=== PATIENT | male | born 1960 | race Caucasian/White ===

== ENCOUNTER 2018-09-09 05:19 | Emergency (ER) | payer OTHER ==
[2018-09-09] MEDS ORDERED: hydrALAZINE 20 MG/ML SDV IV ONE (05:20)
[2018-09-09] MEDS ORDERED: fentaNYL 100 MCG/2 ML SDV IV ONE (05:20)
[2018-09-09] MEDS ORDERED: HYDROmorphone 1 MG/ML Syringe IV ONE (05:20)
[2018-09-09] MEDS ORDERED: Sodium Chloride 0.9% 1,000 ML IV ONE (05:20)
[2018-09-09] MEDS ORDERED: Ondansetron 4 MG/2 ML SDV IV ONE (05:20)
[2018-09-09 06:59] LABS: ANION GAP 14.6; CHLORIDE,CL 103 mmol/L (101-111); SODIUM,NA 136 mmol/L (135-145)
[2018-09-09] MEDS ORDERED: HYDROmorphone 1 MG/ML Syringe ONE (07:11)
--- NOTE | 2018-09-09 08:16 | CR ---
Clinical history: 58-year-old male "severe" pain base of skull, neck and back. Interpretation: AP lateral cervical spine film confirms some marginal spondylosis and uncinate spur formation at the lowest C6-7 interspace. Normal age and gender appropriate bone mineral density. Normal height and alignment of the 7 cervical vertebra. No sign of pathologic skeletal lesion, cervical fracture or spondylolisthesis. No cervical rib anomalies. Lung apices clear. 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 No fracture or dislocation cervical spine.
--- NOTE | 2018-09-09 08:18 | CR ---
Clinical history: 58-year-old male emergency department with severe" back pain. Interpretation: Abnormal. Signs of chronic multilevel thoracic disc disease i.e. marked interspace narrowing with hypertrophic marginal spondylosis involving all vertebra mid and lower thoracic spine. No sign of paraspinal soft tissue mass. Posterior ribs unremarkable. Lung arreola clear. No pathologic skeletal lesion, thoracic fracture or dislocation.
--- NOTE | 2018-09-09 08:21 | CR ---
Clinical history: 58-year-old male pain. Interpretation: (2 views left shoulder) Prominent Hill-Sachs notch like deformity lateral aspect of the humeral head suggesting previous dislocation and... probable capsular damage. *Humeral head is elevated relative to the glenoid of the scapula indicating probable rotator cuff impingement or tear. Clinical? Homogeneous normal bone density. Underlying ribs left hemithorax unremarkable. No sign of pathologic skeletal lesion, acute left shoulder fracture or glenohumeral dislocation. No acromioclavicular separation.
--- NOTE | 2018-09-09 08:23 | CR ---
Clinical history: 58-year-old male severe back pain. Interpretation: Dense atheromatous calcifications outlining normal caliber abdominal aorta. Homogeneous normal bone mineral density consistent with age and gender. Multilevel lower thoracic and upper lumbar disc disease i.e. interspace narrowing T11 through L2 with endplate sclerosis and marginal spondylosis. No sign of pathologic skeletal lesion, lumbar fracture or dislocation. No abnormal intervertebral disc space narrowing lower lumbar spine. Symmetric spacing normal-appearing SI and hip joints but dense reactive bony eburnation suggesting early arthritis hips. No pelvic or either hip fracture/dislocation.
[2018-09-09] MEDS ORDERED: cefTRIAXone 1 GM Vial IM ONE (10:13)
--- NOTE | 2018-09-09 10:18 | EDM.PDOC ---
ED HPI GENERAL MEDICAL PROBLEM - General Chief Complaint: Neck Problem Stated Complaint: VOMITTING,HEADACHE - Related Data Allergies Allergy/AdvReac Type Severity Reaction Status Date / Time No Known Allergies Allergy Verified 09/09/18 12:43 Home Meds: Home Meds Aspirin 1 tab PO DAILY 05/22/16 [History] Glimepiride 1 tab PO DAILY 05/22/16 [History] Insulin Detemir [Levemir] 28 units SQ BEDTIME 05/22/16 [History] Liraglutide [Victoza] 1.2 mg SQ DAILY 05/22/16 [History] Lisinopril [Zestril] 1 tab PO DAILY 05/22/16 [History] Magnesium Oxide [Magnesium] 1 tab PO DAILY 05/22/16 [History] Multivitamin [Multivitamins] 1 tab PO DAILY 05/22/16 [History] atorvaSTATin [Lipitor] 1 tab PO DAILY 05/22/16 [History] metFORMIN HCl [Metformin HCl] 1 tab PO BID 05/22/16 [History] Past Medical History HEENT History: Reports: None Cardiovascular History: Reports: High Cholesterol Respiratory History: Reports: Sleep Apnea Gastrointestinal History: Reports: None Genitourinary History: Reports: None Musculoskeletal History: Reports: None Neurological History: Reports: None Psychiatric History: Reports: None Endocrine/Metabolic History: Reports: Diabetes, Type II Hematologic History: Reports: None Immunologic History: Reports: None Oncologic (Cancer) History: Reports: None Dermatologic History: Reports: Eczema - Infectious Disease History Infectious Disease History: Reports: Chicken Pox, Mumps - Past Surgical History HEENT Surgical History: Reports: Oral Surgery, Tonsillectomy Social & Family History - Family History HEENT: Reports: None Cardiac: Reports: High Cholesterol, [place] Respiratory: Reports: None GI: Reports: None : Reports: None OBGYN: Reports: None Musculoskeletal: Reports: None Neurological: Reports: None Psychiatric: Reports: None Endocrine/Metabolic: Reports: None Hematologic: Reports: None Immunologic: Reports: None Dermatologic: Reports: Eczema Oncologic: Reports: Pancreatic, Skin - Caffeine Use Caffeine Use: Reports: Coffee Caffeine Use Comment: rare coffee Course - Orders/Labs/Meds Labs: Laboratory Tests 09/09/18 09/09/18 09/09/18 Range/Units 05:32 05:32 05:32 WBC 14.4 H (5.0-10.0) 10^3/uL RBC 4.95 (4.6-6.2) 10^6/uL Hgb 14.4 (14.0-18.0) g/dL Hct 43.4 (40.0-54.0) % MCV 87.7 (80-100) fL MCH 29.1 (27.0-34.0) pg MCHC 33.2 (33.0-35.0) g/dL Plt Count 318 (150-450) 10^3/uL Neut % (Auto) 68.0 (42.2-75.2) % Lymph % (Auto) 22.3 (20.5-50.1) % [place] % (Auto) 7.4 (2-8) % Eos % (Auto) 2.2 (1.0-3.0) % Baso % (Auto) 0.1 (0.0-1.0) % Sodium 136 (135-145) mmol/L Potassium 3.6 (3.6-5.0) mmol/L Chloride 103 (101-111) mmol/L Carbon Dioxide 22.0 (21.0-31.0) mmol/L Anion Gap 14.6 BUN 27 H (7-18) mg/dL Creatinine 0.7 (0.6-1.3) mg/dL Est Cr Clr Drug Dosing TNP Estimated GFR (MDRD) > 60 BUN/Creatinine Ratio 38.57 Glucose 165 H (74-105) mg/dL Lactic Acid 1.1 (0.5-2.2) mmol/L Calcium 9.3 (8.4-10.2) mg/dl Total Bilirubin 0.5 (0.2-1.0) mg/dL AST 20 (10-42) IU/L ALT 26 (10-60) IU/L Alkaline Phosphatase 65 (42-121) IU/L Troponin I < 0.02 (0.00-0.02) ng/ml Total Protein 7.4 (6.7-8.2) g/dl Albumin 4.1 (3.2-5.5) g/dl Globulin 3.3 Albumin/Globulin Ratio 1.24 Amylase 35 (28-100) U/L Lipase 33 (22-51) U/L Urine Color (YELLOW) Urine Appearance (CLEAR) Urine pH (5.0-9.0) Ur Specific [place] (1.005-1.030) Urine Protein (NEGATIVE) Urine Glucose (UA) (NEGATIVE) Urine Ketones (NEGATIVE) Urine Occult Blood (NEGATIVE) Urine Nitrite (NEGATIVE) Urine Bilirubin (NEGATIVE) Urine Urobilinogen (0.2-1.0) mg/dL Ur Leukocyte Esterase (NEGATIVE) Urine RBC /HPF Urine WBC (0-5/HPF) /HPF Ur Epithelial Cells (NOT SEEN) /HPF 09/09/18 Range/Units 08:10 WBC (5.0-10.0) 10^3/uL RBC (4.6-6.2) 10^6/uL Hgb (14.0-18.0) g/dL Hct (40.0-54.0) % MCV (80-100) fL MCH (27.0-34.0) pg MCHC (33.0-35.0) g/dL Plt Count (150-450) 10^3/uL Neut % (Auto) (42.2-75.2) % Lymph % (Auto) (20.5-50.1) % [place] % (Auto) (2-8) % Eos % (Auto) (1.0-3.0) % Baso % (Auto) (0.0-1.0) % Sodium (135-145) mmol/L Potassium (3.6-5.0) mmol/L Chloride (101-111) mmol/L Carbon Dioxide (21.0-31.0) mmol/L Anion Gap BUN (7-18) mg/dL Creatinine (0.6-1.3) mg/dL Est Cr Clr Drug Dosing Estimated GFR (MDRD) BUN/Creatinine Ratio Glucose (74-105) mg/dL Lactic Acid (0.5-2.2) mmol/L Calcium (8.4-10.2) mg/dl Total Bilirubin (0.2-1.0) mg/dL AST (10-42) IU/L ALT (10-60) IU/L Alkaline Phosphatase (42-121) IU/L Troponin I (0.00-0.02) ng/ml Total Protein (6.7-8.2) g/dl Albumin (3.2-5.5) g/dl Globulin Albumin/Globulin Ratio Amylase (28-100) U/L Lipase (22-51) U/L Urine Color Yellow (YELLOW) Urine Appearance Clear (CLEAR) Urine pH 7.0 (5.0-9.0) Ur Specific [place] 1.020 (1.005-1.030) Urine Protein Trace H (NEGATIVE) Urine Glucose (UA) 100 H (NEGATIVE) Urine Ketones Negative (NEGATIVE) Urine Occult Blood Negative (NEGATIVE) Urine Nitrite Negative (NEGATIVE) Urine Bilirubin Negative (NEGATIVE) Urine Urobilinogen 0.2 (0.2-1.0) mg/dL Ur Leukocyte Esterase Negative (NEGATIVE) Urine RBC 0-5 /HPF Urine WBC Not seen (0-5/HPF) /HPF Ur Epithelial Cells Rare (NOT SEEN) /HPF Meds: Medications Discontinued Medications Generic Name Dose Route Start Last Admin Trade Name Freq PRN Reason Stop Dose Admin Ceftriaxone Sodium 1 gm 09/09/18 10:13 Rocephin IM 09/09/18 10:14 ONETIME ONE Fentanyl 25 mcg 09/09/18 05:20 Sublimaze IV 09/09/18 05:21 .STK-MED ONE Hydralazine HCl 10 mg 09/09/18 05:20 Apresoline IV 09/09/18 05:21 .STK-MED ONE Hydromorphone HCl Confirm 09/09/18 07:11 09/09/18 09:04 Dilaudid Administered 09/09/18 07:12 1 mg Dose Administration 1 mg .ROUTE .STK-MED ONE Hydromorphone HCl 1 mg 09/09/18 05:20 Dilaudid IV 09/09/18 05:21 .STK-MED ONE Sodium Chloride 1,000 mls @ as directed 09/09/18 05:20 Normal Saline IV 09/09/18 05:21 .STK-MED ONE Ondansetron HCl 4 mg 09/09/18 05:20 Zofran IV 09/09/18 05:21 .STK-MED ONE Orphenadrine Citrate 60 mg 09/09/18 08:30 09/09/18 09:11 Norflex IM 60 mg Q12H FIONA Administration Departure - Departure Disposition: Home, Self-Care 01 Condition: Poor Clinical Impression: Neck pain Right otitis media Qualifiers: Otitis media type: suppurative Chronicity: acute Recurrence: not specified as recurrent Spontaneous tympanic membrane rupture: without spontaneous rupture Qualified Code(s): H66.001 - Acute suppurative otitis media without spontaneous rupture of ear drum, right ear Rotator cuff disorder Qualifiers: Laterality: left Qualified Code(s): M67.912 - Unspecified disorder of synovium and tendon, left shoulder - Discharge Information *PRESCRIPTION DRUG MONITORING PROGRAM REVIEWED*: No *COPY OF PRESCRIPTION DRUG MONITORING REPORT IN PATIENT DANY: No Instructions: Shoulder Pain, Otitis Media, Adult, [id number], Neck Exercises , Radicular Pain, Cervical Sprain, [id number] Referrals: Rocio Loving NP [Primary Care Provider] - Forms: ED Department Discharge Additional Instructions: RX: Diclofenac, Flexeril Drink plenty of water Follow up with your primary care facility Return to the ER with any further problems
== END 2018-09-09 10:32 | disposition home or self-care (01) ==
LOC: DL.ED 05:19
DX: H66.001 Acute suppurative otitis media without spontaneous rupture of ear drum, right ear (principal); M67.912 Unspecified disorder of synovium and tendon, left shoulder; M54.2 Cervicalgia; R51 Headache; I10 Essential (primary) hypertension; F17.210 Nicotine dependence, cigarettes, uncomplicated; F41.9 Anxiety disorder, unspecified; E11.9 Type 2 diabetes mellitus without complications; E78.00 Pure hypercholesterolemia, unspecified; Z79.82 Long term (current) use of aspirin; Z79.899 Other long term (current) drug therapy
CPT/HCPCS: 36415; 70450; 72040; 72070; 72100; 73030; 80053; 81001; 82150; 83605; 83690; 84484; 85025; 87804; 96372; 96374; 96375; 99284; J0360; J1170; J2360; J2405; J3010; J7030

== ENCOUNTER 2018-09-09 12:09 | Emergency (ER) | payer OTHER ==
[2018-09-09 12:14] VITALS: BP 121/89
[2018-09-09] MEDS ORDERED: cefTRIAXone 2 GM in Sodium Chloride 0.9% 100 ML IV ONE (12:40)
[2018-09-09] MEDS ORDERED: cefTRIAXone 1 GM Vial ONE (13:11)
--- NOTE | 2018-09-09 13:23 | CR ---
Clinical history: 58-year-old male emergency department with severe neck/back pain who is "decompensating" (ET tube). Interpretation: AP supine portable chest film confirms presence of midline and endotracheal tube (tip directed to the right of midline and lies approximately 3 cm from the louisa or tracheobronchial bifurcation). No rib fractures. No pneumothorax or pneumomediastinum. Symmetric aeration of the lung arreola without sign of atelectasis or collapse. Normal cardiac silhouette without alveolar edema or dependent effusion. Multilevel disc disease and hypertrophic arthritic changes of the spine. No lobar pneumonia. Note: NG tube tip left upper quadrant presumably fundus of stomach. External security monitor leads. CONCLUSION: Satisfactory tube placement.
--- NOTE | 2018-09-16 02:58 | EDM.PDOC ---
Scribed by Shreya Sims 09/16/18 0254 for Maddie Johnston NP ED HPI GENERAL MEDICAL PROBLEM - General Chief Complaint: Drug or Alcohol Abuse Stated Complaint: UNKNOWN-AMBULANCE Time Seen by Provider: 09/09/18 12:11 Source of Information: Reports: Patient, EMS, EMS Notes Reviewed, Family, RN, RN Notes Reviewed History Limitations: Reports: Altered Mental Status, Combative/Threatening - History of Present Illness INITIAL COMMENTS - FREE TEXT/NARRATIVE: Pt to ER per [facility] with altered mental status. EMS states they were dispatched for an unresponsive man in a car. Significant other states he was in the ER previously this morning with severe pain in the right ear, base of the skull, and generalized back and hip pain. Patient was very uncomfortable. Patient was given medications for pain and muscle relaxant. states she felt comfortable taking him home to rest. She states when she got him home he was not responding to her, was combative with her. EMS was called. Upon arrival, patient is flailing arms and legs, combative with staff, does not open eyes upon request. EMS reports giving Narcan 2mg. Onset: Today, Sudden - Related Data Allergies Allergy/AdvReac Type Severity Reaction Status Date / Time No Known Allergies Allergy Verified 09/09/18 12:43 Home Meds: Home Meds Aspirin 1 tab PO DAILY 05/22/16 [History] Glimepiride 1 tab PO DAILY 05/22/16 [History] Insulin Detemir [Levemir] 28 units SQ BEDTIME 05/22/16 [History] Liraglutide [Victoza] 1.2 mg SQ DAILY 05/22/16 [History] Lisinopril [Zestril] 1 tab PO DAILY 05/22/16 [History] Magnesium Oxide [Magnesium] 1 tab PO DAILY 05/22/16 [History] Multivitamin [Multivitamins] 1 tab PO DAILY 05/22/16 [History] atorvaSTATin [Lipitor] 1 tab PO DAILY 05/22/16 [History] metFORMIN HCl [Metformin HCl] 1 tab PO BID 05/22/16 [History] Past Medical History HEENT History: Reports: None Cardiovascular History: Reports: High Cholesterol Respiratory History: Reports: Sleep Apnea Gastrointestinal History: Reports: None Genitourinary History: Reports: None Musculoskeletal History: Reports: None Neurological History: Reports: None Psychiatric History: Reports: None Endocrine/Metabolic History: Reports: Diabetes, Type II Hematologic History: Reports: None Immunologic History: Reports: None Oncologic (Cancer) History: Reports: None Dermatologic History: Reports: Eczema - Infectious Disease History Infectious Disease History: Reports: Chicken Pox, Mumps - Past Surgical History Head Surgeries/Procedures: Reports: None HEENT Surgical History: Reports: Oral Surgery, Tonsillectomy Social & Family History - Family History Family Medical History: Noncontributory HEENT: Reports: None Cardiac: Reports: High Cholesterol, [place] Respiratory: Reports: None GI: Reports: None : Reports: None OBGYN: Reports: None Musculoskeletal: Reports: None Neurological: Reports: None Psychiatric: Reports: None Endocrine/Metabolic: Reports: None Hematologic: Reports: None Immunologic: Reports: None Dermatologic: Reports: Eczema Oncologic: Reports: Pancreatic, Skin - Tobacco Use Smoking Status *Q: Current Every Day Smoker Years of Tobacco use: 10 Packs/Tins Daily: 1 - Caffeine Use Caffeine Use: Reports: Coffee Caffeine Use Comment: rare coffee - Alcohol Use Days Per Week of Alcohol Use: 1 Number of Drinks Per Day: 3 Total Drinks Per Week: 3 - Recreational Drug Use Recreational Drug Use: No ED ROS GENERAL - Review of Systems Review Of Systems: ROS reveals no pertinent complaints other than HPI. - Physical Exam Exam: See Below Exam Limited By: Altered Mental Status General Appearance: Moderate Distress Eye Exam: Bilateral Eye: PERRL (2 sluggish) Ears: Normal External Exam, Hearing Grossly Normal Nose: Normal Inspection Throat/Mouth: Normal Inspection, No Airway Compromise Head Exam: Atraumatic, Normocephalic Neck: Normal Inspection, Supple, Non-Tender, Full Range of Motion Respiratory/Chest: No Respiratory Distress, Lungs Clear, Normal Breath Sounds, No Accessory Muscle Use, Chest Non-Tender Cardiovascular: Normal Peripheral Pulses, Regular Rate, Rhythm, No Edema, No Gallop, No JVD, No Murmur, No Rub GI/Abdominal: Normal Bowel Sounds, Soft, Non-Tender (Male) Exam: Deferred Rectal (Males) Exam: Deferred Neuro Exam (Abbreviated): Unresponsive Back Exam: Normal Inspection, Full Range of Motion Extremities: Normal Inspection, Normal Range of Motion, Non-Tender, No Pedal Edema, Normal Capillary Refill Skin Exam: Warm, Dry, Intact, Normal Color, No Rash Course - Vital Signs Last Recorded V/S: Last Vital Signs Temp 97.8 F 09/09/18 12:11 Pulse 78 09/09/18 12:11 Resp 18 09/09/18 12:11 BP 121/89 09/09/18 12:11 Pulse Ox - Orders/Labs/Meds Labs: Laboratory Tests 09/09/18 Range/Units 12:40 POC Glucose 245 H (70-105) mg/dl Meds: Medications Discontinued Medications Generic Name Dose Route Start Last Admin Trade Name Mandy PRN Reason Stop Dose Admin Ceftriaxone Sodium Confirm 09/09/18 13:11 09/09/18 13:15 Rocephin Administered 09/09/18 13:12 Not Given Dose 2 gm .ROUTE .STK-MED ONE Ceftriaxone Sodium 2 gm/ 100 mls @ 200 mls/hr 09/09/18 12:40 09/09/18 13:14 Sodium Chloride IV 09/09/18 13:09 200 mls/hr ONETIME ONE Administration Vancomycin HCl 1 gm/ Sodium 250 mls @ 167 mls/hr 09/09/18 12:39 09/09/18 13: 15 Chloride IV 09/09/18 14:08 167 mls/hr ONETIME ONE Administration - Radiology Interpretation Free Text/Narrative:: Chest x-ray: Satisfactory tube placement. See rad report. - Re-Assessments/Exams Free Text/Narrative Re-Assessment/Exam: 09/16/18 02:54 Patient intubated per F. Patient case discussed with Dr. Eubanks who agreed to accept the patient for transfer and admission to [facility]. Departure - Departure Time of Disposition: 13:55 Disposition: DC/Tfer to Acute Hospital 02 Condition: Poor Clinical Impression: Altered mental status Qualifiers: Altered mental status type: unspecified Qualified Code(s): R41.82 - Altered mental status, unspecified - Discharge Information *PRESCRIPTION DRUG MONITORING PROGRAM REVIEWED*: No *COPY OF PRESCRIPTION DRUG MONITORING REPORT IN PATIENT DANY: No Referrals: PCP,None [Primary Care Provider] - Forms: ED Department Discharge, Interfacility Transfer EMTALA I have read and agree with the documentation that has been completed regarding this visit. By signing this record, I attest that the documentation was completed in my physical presence and is an accurate record of the encounter.
== END 2018-09-09 13:13 ==
LOC: DL.ED 12:09
DX: R41.82 Altered mental status, unspecified (principal); H92.01 Otalgia, right ear; M54.9 Dorsalgia, unspecified; M25.559 Pain in unspecified hip; E78.00 Pure hypercholesterolemia, unspecified; E11.9 Type 2 diabetes mellitus without complications; F17.210 Nicotine dependence, cigarettes, uncomplicated; Z79.82 Long term (current) use of aspirin; Z79.899 Other long term (current) drug therapy
CPT/HCPCS: 31500; 43752; 51702; 71045; 82962; 93005; 96374; 96375; 99285; J0696; J3370; J7050